=== PATIENT | female | born 1975 | race Caucasian/White ===

== ENCOUNTER 2016-10-28 17:20 | Emergency (ER) | payer MEDICAID ==
[~2016-10-28] VITALS: Ht 157.5 cm; Wt 69.5 kg
[2016-10-28 17:29] VITALS: BP 133/81; PULSE 87; RESP 16; TEMP 98.9; O2SAT 98
[2016-10-28] MEDS ORDERED: AUGM875T PO (18:11)
--- NOTE | 2016-10-28 18:20 | PD ---
HPI Chief Complaint: ENT Complaint Time Seen by Provider: 18:13 Travel History International Travel<30 days: No Contact w/Intl Traveler<30days: No Traveled to known affect area: No History of Present Illness HPI 41-year-old female presents to the emergency room for evaluation of sinus pressure, congestion, right ear pain, and nonproductive cough for the past 10 days. Patient states it started off as a regular cold that seemed to worsen over time. She has continuous nasal congestion. States she blows her nose constantly throughout the day. Most bothered by her right ear which is full with decreased hearing. She has been taking [id number] NyQuil, DayQuil, and Robitussin without any relief in symptoms. Denies fever, chills, nausea, and vomiting. PFSH Past Medical History Medical History: Denies Significant Hx Diminished Hearing: No Herniated Disk: Yes (L5) Tetanus Vaccination: > 5 Years Influenza Vaccination: No ?: Not : 2 Para: 2 Tubal Ligation: Yes Past Surgical History Gynecologic Surgery: Yes (NOVASURE) Other Surgery: Yes (SPINAL ABLATION X2, left wrist) Social History Alcohol Use: Yes (Occ.) Tobacco Use: Yes (1 PPD) Substance Use: No Allergies-Medications (Allergen,Severity, Reaction): Coded Allergies: No Known Allergies (Unverified , 10/28/16) Reported Meds & Prescriptions Reported Meds & Active Scripts Active Augmentin (Amoxicillin-Clavulanate) 875-125 mg Tab 875 Mg PO BID 10 Days not for use in CrCl <30 ml/min. Review of Systems Except as stated in HPI: all other systems reviewed are Neg Physical Exam Narrative GENERAL: Well-nourished, well-developed female in no acute distress. Afebrile. Ambulatory. SKIN: Warm and dry. HEAD: Normocephalic. EYES: No scleral icterus. No injection or drainage. ENT: Mucosa pink and moist. Moderate erythema without edema or exudates. No uvular edema. No uvular, palatal, or tonsillar deviation. Airway patent. Nasal turbinates appear normal without nasal blood, purulent drainage or septal hematoma. EARS: Bilateral pinnae and external canals appear within normal limits. Left tympanic membrane without erythema, dullness or perforation. Right tympanic membrane is erythematous and dull. NECK: Supple, trachea midline. No JVD or lymphadenopathy. CARDIOVASCULAR: Regular rate and rhythm without murmurs, gallops, or rubs. RESPIRATORY: Breath sounds equal bilaterally. No accessory muscle use. Data Data Last Documented VS Vital Signs Date Time Temp Pulse Resp B/P Pulse Ox O2 Delivery O2 Flow Rate FiO2 10/28/16 17:45 16 10/28/16 17:29 98.9 87 133/81 98 MDM Medical Decision Making Medical Screen Exam Complete: Yes Emergency Medical Condition: Yes Medical Record Reviewed: Yes Differential Diagnosis Sinusitis versus bronchitis versus upper respiratory infection Narrative Course 41-year-old female presents to the emergency room for evaluation of sinus and ear pressure for the past 10 days. Resting comfortably. Vital signs stable. Physical exam reveals an extremely erythematous right tympanic membrane with effusion. Lung sounds clear and equal bilaterally. There is mild tenderness to palpation over the maxillary sinuses. Given duration of symptoms, patient will be discharged with prescription for Augmentin and told to follow up with her primary care physician or return for worsening symptoms. [facility] agrees to plan. Diagnosis Primary Impression: Sinusitis Qualified Code: J01.00 - Acute non-recurrent maxillary sinusitis Additional Impression: Right otitis media with effusion Referrals: Primary Care Physician Patient Instructions: General Instructions, Sinusitis (ED) Additional Instructions: Rest and drink plenty of fluids. Take Augmentin with food as directed, until gone. Follow-up with a primary care physician. Return to the emergency room for worsening symptoms. Med/Other Pt SpecificInfo: Prescription(s) given Scripts Amoxicillin-Clavulanate (Augmentin)875-125 mg [id number] Mg PO BID 10 Days Ref 0 not for use in CrCl <30 ml/min. Prov:Nic Vu MD 10/28/16 Disposition: 01 DISCHARGE HOME Condition: Stable Ninoska Bishop Oct 28, 2016 18:20
== END 2016-10-28 18:30 | disposition home or self-care (01) ==
LOC: PHEFT 17:20
DX: J32.9 Chronic sinusitis, unspecified (principal); H65.91 Unspecified nonsuppurative otitis media, right ear
CPT/HCPCS: 99283

== ENCOUNTER 2017-07-25 11:48 | Emergency (ER) | payer MEDICAID ==
[~2017-07-25] VITALS: Ht 160 cm; Wt 67.8 kg
[~2017-07-25 11:48] MED LIST: AUGM875T PO
[2017-07-25 11:54] VITALS: BP 129/67; PULSE 73; RESP 18; TEMP 98.3
[2017-07-25] MEDS ORDERED: NAPR250T PO (12:10)
[2017-07-25] MEDS ORDERED: IBUP-1129 PO (12:10)
[2017-07-25] MEDS ORDERED: ORPHENADRINE INJ 60 MG/2 ML AMP IM ONE (12:30)
[2017-07-25] MEDS ORDERED: KETOROLAC TROMETHAMINE 60 MG/2 ML (IM) VIAL IM ONE (12:30)
[2017-07-25] MEDS ORDERED: CYCL5TAB PO (12:43)
--- NOTE | 2017-07-25 12:44 | PD ---
HPI . Left lateral neck pain Chief Complaint: Back/ Neck Pain or Injury Time Seen by Provider: 12:00 Travel History International Travel<30 days: No Contact w/Intl Traveler<30days: No Traveled to known affect area: No History of Present Illness HPI 42-year-old female presents to emergency room for evaluation of left lateral neck pain that started yesterday while she was working. 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 Patient states it was raining yesterday and she was not doing any labor-intensive activities when the pain started. Patient does not know what occurred to reduce the pain. Patient denies any injuries or trauma to the neck. Patient states she had this once before a long time ago after she pulled a neck muscle. Patient denies any paresthesias, chest pain, shortness breath, fever, chills, malaise, abdominal pain or lightheadedness. Patient has slightly decreased range of motion on left rotation. Full range of motion on right rotation. Full range of motion on extension and limited range of motion on flexion with the neck. Patient has no midline spinal tenderness. Patient states the pain does not radiate anywhere. The pain is aching and chronic in nature and originates at the base of the left lateral skull and extends down over the shoulder and left upper back. Patient denies any major medical history. Patient does not take any daily meds regularly. Patient has no allergies. PFSH Past Medical History Diminished Hearing: No Herniated Disk: Yes (L5) Musculoskeletal: Yes Immunizations Current: No Tetanus Vaccination: > 5 Years Influenza Vaccination: No ?: Not Menopausal: Yes : 2 Para: 2 Tubal Ligation: Yes Past Surgical History Gynecologic Surgery: Yes (NOVASURE) Other Surgery: Yes (SPINAL ABLATION X2, left wrist) Social History Alcohol Use: Yes (Occ.) Tobacco Use: Yes (1 PPD) Substance Use: No Allergies-Medications (Allergen,Severity, Reaction): Coded Allergies: No Known Allergies (Unverified , 07/25/17) Reported Meds & Prescriptions Reported Meds & Active Scripts Active Reported Naproxen 250 Mg Tab 250 Mg PO ONCE Motrin Ib (Ibuprofen) 200 Mg Tablet 800 Mg PO ONCE Review of Systems Except as stated in HPI: all other systems reviewed are Neg Physical Exam Narrative GENERAL: Well-nourished, well-developed 42-year-old female patient in no acute distress. SKIN: Focused skin assessment warm/dry. HEAD: Normocephalic. Atraumatic EYES: No scleral icterus. No injection or drainage. NECK: Supple, trachea midline. No JVD or lymphadenopathy. CARDIOVASCULAR: Regular rate and rhythm without murmurs, gallops, or rubs. RESPIRATORY: Breath sounds equal bilaterally. No accessory muscle use. GASTROINTESTINAL: Abdomen soft, non-tender, nondistended. MUSCULOSKELETAL: Slightly decreased range of motion with left rotation of the neck. Full range of motion on the right rotation of the neck. Full range of motion with extension of the neck. Slightly decreased range of motion with flexion of the neck. No cyanosis, ecchymosis or edema. BACK: No midline spinal tenderness. Nontender without obvious deformity. No CVA tenderness. Data Data Last Documented VS Vital Signs Date Time Temp Pulse Resp B/P (MAP) Pulse Ox O2 Delivery O2 Flow Rate FiO2 07/25/17 11:54 98.3 73 18 129/67 (87) Orders Orders Orphenadrine Inj (Norflex Inj) (07/25/17 12:30) Ketorolac Inj (Toradol Inj) (07/25/17 12:30) MDM Medical Decision Making Medical Screen Exam Complete: Yes Emergency Medical Condition: Yes Differential Diagnosis Differential diagnoses include but not limited to neck strain, neck strain, neck contusion, neck pain Narrative Course 42-year-old female presents to emergency room for evaluation of neck pain. Patient denies any paresthesias, chest pain, injury or trauma occurring to the neck. There is no midline spinal tenderness. Based on patient's symptoms, clinical presentation, vital sign review and physical exam it is not necessary to admit the patient to the hospital or keep the patient in the emergency department for further evaluation. Patient will be given Norflex IM and Toradol IM injections and then discharged home with prescription for Flexeril, instructions to use heating pad and to follow-up with primary care physician. Referrals: Primary Care Physician Patient Instructions: Acute Neck Pain (ED), General Instructions Additional Instructions: Please return to emergency department if your symptoms return or worsen. May use heating pad on the area for 20 minutes to alleviate pain. Follow up with your primary care provider. Take medications as prescribed. Use caution as medication may make you feel sleepy. Med/Other Pt SpecificInfo: Prescription(s) given Scripts Cyclobenzaprine (Flexeril) 5 Mg Tab 5 MG PO BID Y for SPASM, #6 TAB 0 Refills Prov: Marcelina Núñez 07/25/17 Disposition: 01 DISCHARGE HOME Condition: Stable Marcelina Núñez Jul 25, 2017 12:44
== END 2017-07-25 12:53 | disposition home or self-care (01) ==
LOC: PHEFT 11:48
DX: M54.2 Cervicalgia (principal); F17.200 Nicotine dependence, unspecified, uncomplicated; Z79.899 Other long term (current) drug therapy
CPT/HCPCS: 96372; 99284; J1885; J2360

== ENCOUNTER 2017-09-23 19:29 | Emergency (ER) | payer SELFPAY ==
[~2017-09-23] VITALS: Ht 160 cm; Wt 66.0 kg
[~2017-09-23 19:29] MED LIST changes: -AUGM875T PO; +CYCL5TAB PO; +IBUP-1129 PO; +NAPR250T4 PO
[2017-09-23 19:47] VITALS: BP 123/74; PULSE 73; RESP 16; TEMP 97.8; O2SAT 97
[2017-09-23 20:07] VITALS: BP 121/87; PULSE 78; RESP 16; O2SAT 97
[2017-09-23] MEDS ORDERED: MORPHINE SULFATE 4 MG/ML INJ IV PUSH ONE (20:15)
[2017-09-23] MEDS ORDERED: ONDANSETRON HCL 4 MG/2 ML VIAL IVP ONE (20:15)
[2017-09-23] MEDS ORDERED: SODIUM CHLORIDE 0.9% FLUSH 10 ML FLUSH IV FLUSH PRN (20:15)
[2017-09-23 20:20] LABS: AUTOMATED NEUTROPHIL # 6.5 TH/MM3 (1.8-7.7); BASOPHIL # 0.1 TH/MM3 (0-0.2); BASOPHIL % 1.3 % (0.0-2.0); EOSINOPHIL # 0.4 TH/MM3 (0-0.4); EOSINOPHIL % 3.8 % (0.0-4.0); HEMATOCRIT 43.1 % (35.0-46.0); HEMO FLAGS DIFF FINAL; LYMPH % 31.3 % (9.0-44.0); LYMPHOCYTE # 3.4 TH/MM3 (1.0-4.8); MEAN CELL VOLUME 90.8 FL (80.0-100.0); MEAN CORPUSCULAR HEMOGLOBIN 31.1 PG (27.0-34.0); MEAN CORPUSCULAR HGB CONC 34.3 % (32.0-36.0); MONO % 5.5 % (0.0-8.0); NEUT % 58.1 % (16.0-70.0); PLATELET COUNT 326 TH/MM3 (150-450); RED BLOOD COUNT 4.75 MIL/MM3 (4.00-5.30); RED CELL DISTRIBUTION WIDTH 12.8 % (11.6-17.2)
--- NOTE | 2017-09-23 20:22 | PD ---
HPI . Abdominal pain Chief Complaint: Abdominal Pain Time Seen by Provider: 19:54 Travel History International Travel<30 days: No Contact w/Intl Traveler<30days: No Traveled to known affect area: No History of Present Illness HPI Patient presents with chief complaint of abdominal pain. She reports left sided abdominal pain which started earlier today. It is getting progressively worse. It does come and go. She describes it as a stabbing pain which is exacerbated by movement. She reports no pain when she is at rest. She states that the pain has been so severe for the last couple of hours that it causes nausea. Otherwise, she has no associated symptoms. PFSH Past Medical History Diminished Hearing: No Herniated Disk: Yes (L5) Musculoskeletal: Yes Immunizations Current: No ?: Not LMP: 3 years aog Menopausal: Yes : 2 Para: 2 Tubal Ligation: Yes Past Surgical History Gynecologic Surgery: Yes (NOVASURE) Other Surgery: Yes (SPINAL ABLATION X2, left wrist) Social History Alcohol Use: Yes (Occ.) Tobacco Use: Yes (1 PPD) Substance Use: No Allergies-Medications (Allergen,Severity, Reaction): Coded Allergies: No Known Allergies (Unverified Adverse Reaction, Unknown, 09/23/17) Reported Meds & Prescriptions Reported Meds & Active Scripts Active Flexeril (Cyclobenzaprine HCl) 5 Mg Tab 5 Mg PO BID PRN Reported Naproxen 250 Mg Tab 250 Mg PO ONCE Motrin Ib (Ibuprofen) 200 Mg Tablet 800 Mg PO ONCE Review of Systems Except as stated in HPI: all other systems reviewed are Neg General / Constitutional: No: Fever, Chills Gastrointestinal: Positive: Nausea, Abdominal Pain, No: Vomiting, Diarrhea Genitourinary: No: Urgency, Frequency, Dysuria, Discharge, Vaginal Bleeding Physical Exam Narrative GENERAL: Awake and alert and in no acute distress. SKIN: warm/dry. Normal color. HEAD: Normocephalic. Atraumatic. EYES: Pupils equal and round. No scleral icterus. No injection or drainage. ENT: No nasal bleeding or discharge. Mucous membranes pink and moist. NECK: Trachea midline. Full range of motion without pain.. CARDIOVASCULAR: Regular rate and rhythm. Heart sounds normal. RESPIRATORY: No accessory muscle use. Clear to auscultation. Breath sounds equal bilaterally. GASTROINTESTINAL: Abdomen soft. Left sided tenderness. No guarding or rebound. Bowel sounds present. Nondistended. : No CVA tenderness. MUSCULOSKELETAL: No obvious deformities. NEUROLOGICAL: Awake and alert. No obvious cranial nerve deficits. Motor grossly within normal limits. Normal speech. PSYCHIATRIC: Appropriate mood and affect; insight and judgment normal. Data Data Last Documented VS Vital Signs Date Time Temp Pulse Resp B/P (MAP) Pulse Ox O2 Delivery O2 Flow Rate FiO2 09/23/17 21:48 60 16 111/63 (79) 97 Room Air 09/23/17 19:47 97.8 Orders Orders Ed Urine Pregnancytest Poc (09/23/17 19:54) Urinalysis - C+S If Indicated (09/23/17 19:54) Complete Blood Count With Diff (09/23/17 20:09) Comprehensive Metabolic Panel (09/23/17 20:09) Ct Abd/Pel W Iv Contrast(Rout) (09/23/17 20:09) Iv Access Insert/Monitor (09/23/17 20:09) Ecg Monitoring (09/23/17 20:09) Oximetry (09/23/17 20:09) Morphine Inj (Morphine Inj) (09/23/17 20:15) Ondansetron Inj (Zofran Inj) (09/23/17 20:15) Sodium Chloride 0.9% Flush (Ns Flush) (09/23/17 20:15) Iohexol 350 Inj (Omnipaque 350 Inj) (09/23/17 20:51) Labs Laboratory Tests Test 09/23/17 20:00 White Blood Count 11.0 TH/MM3 Red Blood Count 4.75 MIL/MM3 Hemoglobin 14.8 GM/DL Hematocrit 43.1 % Mean Corpuscular Volume 90.8 FL Mean Corpuscular Hemoglobin 31.1 PG Mean Corpuscular Hemoglobin Concent 34.3 % Red Cell Distribution Width 12.8 % Platelet Count 326 TH/MM3 Mean Platelet Volume 8.5 FL Neutrophils (%) (Auto) 58.1 % Lymphocytes (%) (Auto) 31.3 % Monocytes (%) (Auto) 5.5 % Eosinophils (%) (Auto) 3.8 % Basophils (%) (Auto) 1.3 % Neutrophils # (Auto) 6.5 TH/MM3 Lymphocytes # (Auto) 3.4 TH/MM3 Monocytes # (Auto) 0.6 TH/MM3 Eosinophils # (Auto) 0.4 TH/MM3 Basophils # (Auto) 0.1 TH/MM3 CBC Comment DIFF FINAL Differential Comment Urine Color YELLOW Urine Turbidity CLEAR Urine pH 8.0 Urine Specific [place] 1.021 Urine Protein NEG mg/dL Urine Glucose (UA) NEG mg/dL Urine Ketones NEG mg/dL Urine Occult Blood NEG Urine Nitrite NEG Urine Bilirubin NEG Urine Leukocyte Esterase NEG Urine RBC 0-3 /hpf Urine WBC 0-2 /hpf Urine Squamous Epithelial Cells 0-5 /hpf Urine Amorphous Sediment LARGE Microscopic Urinalysis Comment CULT NOT INDICATED Blood Urea Nitrogen 18 MG/DL Creatinine 0.71 MG/DL Random Glucose 95 MG/DL Total Protein 7.4 GM/DL Albumin 3.8 GM/DL Calcium Level 8.5 MG/DL Alkaline Phosphatase 60 U/L Aspartate Amino Transf (AST/SGOT) 17 U/L Alanine Aminotransferase (ALT/SGPT) 21 U/L Total Bilirubin 0.2 MG/DL Sodium Level 138 MEQ/L Potassium Level 4.1 MEQ/L Chloride Level 106 MEQ/L Carbon Dioxide Level 25.4 MEQ/L Anion Gap 7 MEQ/L Estimat Glomerular Filtration Rate 90 ML/MIN [facility] Medical Decision Making Medical Screen Exam Complete: Yes Emergency Medical Condition: Yes Differential Diagnosis Differential diagnosis of abdominal pain includes but is not limited to gastritis, pancreatitis, hepatitis, gastroenteritis, gallbladder disease, constipation, urinary retention, UTI, peptic ulcer disease, diverticulitis or appendicitis Narrative Course This patient presents for the evaluation of left-sided abdominal pain. I have ordered morphine and Zofran. Routine labs are pending. CT is pending. HCG is negative. CBC & BMP Diagram 09/23/17 20:00 Total Protein 7.4, Albumin 3.8, Calcium Level 8.5, Alkaline Phosphatase 60, Aspartate Amino Transf (AST/SGOT) 17, Alanine Aminotransferase (ALT/SGPT) 21, Total Bilirubin 0.2 UA neg. Last Impressions Abdomen/Pelvis CT 09/23/172008 Signed Impressions: Service Date/Time: Saturday, September 23, 2017 20:29 - CONCLUSION: 1. Enlarged fibroid uterus. 2. Tiny 5 mm lower pole left renal cyst. 3. Mild hepatomegaly. 4. Degenerative disc disease at L5-S1. Miguel Petersen MD No acute etiology for her abdominal pain was found. Her symptoms are most likely muscular. She only has pain when she moves. The history, exam, diagnostic testing, and current condition do not suggest any significant pathology to warrant further testing, continued ED treatment, admission, or surgical evaluation at this point. No EMC was found. The patient 's condition is stable and appropriate for discharge. Diagnosis Primary Impression: Abdominal pain Qualified Codes: R10.32 - Left lower quadrant pain Patient Instructions: General Instructions, Muscle Strain (DC) Med/Other Pt SpecificInfo: Prescription(s) given Scripts Tramadol (Ultram) 50 Mg Tab 50 MG PO Q4H Y for PAIN, #12 TAB 0 Refills Prov: Mayra Thurston MD 09/23/17 Disposition: 01 DISCHARGE HOME Condition: Stable Mayra Thurston MD Sep 23, 2017 20:22
[2017-09-23 20:23] LABS: BLOOD, URINE NEG (NEG); GLUCOSE,URINE NEG (NEG); KETONE, URINE NEG (NEG); NITRITE,URINE NEG (NEG)
[2017-09-23 20:27] LABS: URINE COLOR YELLOW (YELLW/STRAW)
[2017-09-23 20:28] LABS: WBC, URINE 0-2 /hpf (0-5)
[2017-09-23 20:29] LABS: COMMENT (UR) CULT NOT INDICATED; CULTURE IF INDICATED CULT NOT INDICATED; RBC, URINE 0-3 /hpf (0-3); SQUAMOUS EPITHELIAL CELL URINE 0-5 /hpf (0-5)
[2017-09-23 20:31] LABS: CHLORIDE 106 MEQ/L (98-107); POTASSIUM 4.1 MEQ/L (3.5-5.1); SODIUM (NA) 138 MEQ/L (136-145)
[2017-09-23 20:35] LABS: ANION GAP 7 MEQ/L (5-15); BICARBONATE 25.4 MEQ/L (21.0-32.0); BLOOD UREA NITROGEN 18 MG/DL (7-18)
[2017-09-23 20:38] LABS: ALT (GPT) 21 U/L (10-53); AST (GOT) 17 U/L (15-37)
[2017-09-23 20:39] LABS: GLOMERULAR FILTRATION RATE 90 ML/MIN (>89)
[2017-09-23 20:40] LABS: TOTAL BILIRUBIN ADULT 0.2 MG/DL (0.2-1.0)
[2017-09-23 20:41] LABS: ALKALINE PHOSPHATASE 60 U/L (45-117)
[2017-09-23] MEDS ORDERED: IOHEXOL 350 MG/ML 10 ML VIAL (for RAD DIAG) IVCONTRAST ONE (20:51)
--- NOTE | 2017-09-23 21:15 | RADRPT ---
EXAM DATE/TIME: 09/23/2017 20:29 [facility] COMPARISON: No previous studies available for comparison. INDICATIONS : Left lower quadrant pain. IV CONTRAST: 100 cc Omnipaque 350 (iohexol) IV ORAL CONTRAST: No oral contrast ingested. RADIATION DOSE: 8.60 CTDIvol (mGy) MEDICAL HISTORY : None SURGICAL HISTORY : Ana M ENCOUNTER: Initial ACUITY: 1 day PAIN SCALE: 3/10 LOCATION: Left lower quadrant TECHNIQUE: Volumetric scanning of the abdomen and pelvis was performed. Using automated exposure control and ad justment of the mA and/or kV according to patient size, radiation dose was kept as low as reasonably achievable to obtain optimal diagnostic quality images. DICOM format image data is available electro nically for review and comparison. FINDINGS: LOWER LUNGS: The visualized lower lungs are clear. LIVER: Liver is mildly enlarged. Homogeneous density without lesion. There is no dilation of the biliary tr ee. No calcified gallstones. SPLEEN: Normal size without lesion. PANCREAS: Within normal limits. KIDNEYS: Normal in size and shape. There is no mass, stone or hydronephrosis. There is a tiny 5 mm lower pole left renal cyst. ADRENAL GLANDS: Within normal limits. VASCULAR: There is no aortic aneurysm. BOWEL/MESENTERY: The stomach, small bowel, and colon demonstrate no acute abnormality. There is no free intraperitone al air or fluid. The appendix is normal. ABDOMINAL WALL: Within normal limits. RETROPERITONEUM: There is no lymphadenopathy. BLADDER: No wall thickening or mass. REPRODUCTIVE: The uterus is enlarged and contains multiple fibroids. INGUINAL: There is no lymphadenopathy or hernia. MUSCULOSKELETAL: Degenerative disc disease is noted at L5-S1. CONCLUSION: 1. Enlarged fibroid uterus. 2. Tiny 5 mm lower pole left renal cyst. 3. Mild hepatomegaly. 4. Degenerative disc disease at L5-S1. Miguel Petersen MD on September 23, 2017 at 21:10 Board Certified Radiologist. This report was verified electronically.
[2017-09-23 21:48] VITALS: BP 111/63; PULSE 60; RESP 16; O2SAT 97
[2017-09-23] MEDS ORDERED: TRAM50 PO (21:52)
== END 2017-09-23 22:13 | disposition home or self-care (01) ==
LOC: PHED 19:29
DX: R10.32 Left lower quadrant pain (principal); D25.9 Leiomyoma of uterus, unspecified; N28.1 Cyst of kidney, acquired; R16.0 Hepatomegaly, not elsewhere classified; M51.37 Other intervertebral disc degeneration, lumbosacral region; F17.200 Nicotine dependence, unspecified, uncomplicated
CPT/HCPCS: 74177; 80053; 81001; 84703; 85025; 96374; 96375; 99285; J2270; J2405; Q9967

== ENCOUNTER 2017-11-29 20:51 | Emergency (ER) | payer MEDICAID ==
[~2017-11-29] VITALS: Ht 160 cm; Wt 65.0 kg
[~2017-11-29 20:51] MED LIST changes: +TRAM50 PO
[2017-11-29] MEDS ORDERED: MORPHINE SULFATE 4 MG/ML INJ IV PUSH ONE (21:00)
[2017-11-29] MEDS ORDERED: ONDANSETRON HCL 4 MG/2 ML VIAL IV PUSH ONE (21:00)
[2017-11-29] MEDS ORDERED: KETOROLAC TROMETHAMINE 30 MG/ML (IVP) VIAL IV PUSH ONE (21:00)
[2017-11-29] MEDS ORDERED: SODIUM CHLORIDE 0.9% FLUSH 10 ML FLUSH IVF PRN (21:00)
[2017-11-29] MEDS ORDERED: SODIUM CHLOR 0.9% 1000 ML INJ 1,000 ML IV ONE (21:00)
[2017-11-29 21:04] VITALS: BP 127/82; PULSE 81; RESP 16; TEMP 98.8; O2SAT 99
--- NOTE | 2017-11-29 21:06 | PD ---
HPI Chief Complaint: rt flank/rlq pain Time Seen by Provider: 21:00 Travel History International Travel<30 days: No Contact w/Intl Traveler<30days: No Traveled to known affect area: No History of Present Illness HPI c/o sharp, nonrad, 06/29, rlq/rt flank area pain, ongoing for last 4 hrs worsening. patient denies fever/n/v/d/cp/backpain/.....patient denies any alleviating/aggravating factors. patient does give history of ovarian cyst which this feels very much like but higher severity. all:denies pmhs:ovarian cyst o/w denies pshx:denies any organ removed, only "laser" surgery to get rid of ovarian cyst, has not seen senior [employer] consultant in 6yrs PFSH Past Medical History Diminished Hearing: No Herniated Disk: Yes (L5) Musculoskeletal: Yes Immunizations Current: No Menopausal: Yes : 2 Para: 2 Tubal Ligation: Yes Past Surgical History Gynecologic Surgery: Yes (NOVASURE) Other Surgery: Yes (SPINAL ABLATION X2, left wrist) Social History Alcohol Use: Yes (Occ.) Tobacco Use: Yes (1 PPD) Substance Use: No Allergies-Medications (Allergen,Severity, Reaction): Coded Allergies: No Known Allergies (Unverified Adverse Reaction, Unknown, 09/23/17) Reported Meds & Prescriptions Reported Meds & Active Scripts Active Ultram (Tramadol HCl) 50 Mg Tab 50 Mg PO Q4H PRN Flexeril (Cyclobenzaprine HCl) 5 Mg Tab 5 Mg PO BID PRN Reported Naproxen 250 Mg Tab 250 Mg PO ONCE Motrin Ib (Ibuprofen) 200 Mg Tablet 800 Mg PO ONCE Review of Systems Except as stated in HPI: all other systems reviewed are Neg General / Constitutional: No: Fever Eyes: No: Visual changes HENT: No: Headaches Cardiovascular: No: Chest Pain or Discomfort Respiratory: No: Shortness of Breath Gastrointestinal: No: Abdominal Pain Genitourinary: Positive: Flank Pain (rt) Musculoskeletal: No: Pain Skin: No Rash Neurologic: No: Weakness Psychiatric: No: Depression Endocrine: No: Polydipsia Hematologic/Lymphatic: No: Easy Bruising Physical Exam Narrative GENERAL: SKIN: Warm and dry. HEAD: Atraumatic. Normocephalic. EYES: Pupils equal and round. No scleral icterus. No injection or drainage. ENT: No nasal bleeding or discharge. Mucous membranes pink and moist. NECK: Trachea midline. No JVD. CARDIOVASCULAR: Regular rate and rhythm. RESPIRATORY: No accessory muscle use. Clear to auscultation. Breath sounds equal bilaterally. GASTROINTESTINAL: Abdomen soft, nondistended. rt adnexal area ttp...NEG ROVSINGS /PSOAS/OBTURATOR SIGN, NEG MCBURNEY'S AND BURNS'S SIGN.....ANGELITO HANKS IN ROOM: EXTERNAL VULVAR EXAM NEG FOR LESIONS OR VAG DISCHARGE. MUSCULOSKELETAL: Extremities without clubbing, cyanosis, or edema. No obvious deformities. NEUROLOGICAL: Awake and alert. No obvious cranial nerve deficits. Motor grossly within normal limits. Five out of 5 muscle strength in the arms and legs. Normal speech. PSYCHIATRIC: Appropriate mood and affect; insight and judgment normal. Data Data Last Documented VS Vital Signs Date Time Temp Pulse Resp B/P (MAP) Pulse Ox O2 Delivery O2 Flow Rate FiO2 11/29/17 21:04 98.8 81 16 127/82 (97) 99 Room Air Orders Orders Complete Blood Count With Diff (11/29/17 21:00) Comprehensive Metabolic Panel (11/29/17 21:00) Urinalysis - C+S If Indicated (11/29/17 21:00) Ed Urine Pregnancytest Poc (11/29/17 21:00) Ct Abd/Pel W/O Iv Contrast (11/29/17 21:00) Ecg Monitoring (11/29/17 21:00) Iv Access Insert/Monitor (11/29/17 21:00) Ketorolac Inj (Toradol Inj) (11/29/17 21:00) Morphine Inj (Morphine Inj) (11/29/17 21:00) Ondansetron Inj (Zofran Inj) (11/29/17 21:00) Sodium Chloride 0.9% Flush (Ns Flush) (11/29/17 21:00) Sodium Chlor 0.9% 1000 Ml Inj (Ns 1000 M (11/29/17 21:00) Labs Laboratory Tests Test 11/29/17 21:35 11/29/17 21:50 White Blood Count 13.7 TH/MM3 Red Blood Count 4.81 MIL/MM3 Hemoglobin 14.8 GM/DL Hematocrit 44.1 % Mean Corpuscular Volume 91.5 FL Mean Corpuscular Hemoglobin 30.8 PG Mean Corpuscular Hemoglobin Concent 33.6 % Red Cell Distribution Width 13.2 % Platelet Count 371 TH/MM3 Mean Platelet Volume 8.6 FL Neutrophils (%) (Auto) 61.2 % Lymphocytes (%) (Auto) 31.2 % Monocytes (%) (Auto) 5.1 % Eosinophils (%) (Auto) 1.9 % Basophils (%) (Auto) 0.6 % Neutrophils # (Auto) 8.4 TH/MM3 Lymphocytes # (Auto) 4.3 TH/MM3 Monocytes # (Auto) 0.7 TH/MM3 Eosinophils # (Auto) 0.3 TH/MM3 Basophils # (Auto) 0.1 TH/MM3 CBC Comment DIFF FINAL Differential Comment Blood Urea Nitrogen 12 MG/DL Creatinine 0.85 MG/DL Random Glucose 80 MG/DL Total Protein 7.6 GM/DL Albumin 3.9 GM/DL Calcium Level 9.5 MG/DL Alkaline Phosphatase 60 U/L Aspartate Amino Transf (AST/SGOT) 24 U/L Alanine Aminotransferase (ALT/SGPT) 21 U/L Total Bilirubin 0.3 MG/DL Sodium Level 139 MEQ/L Potassium Level 4.5 MEQ/L Chloride Level 107 MEQ/L Carbon Dioxide Level 21.6 MEQ/L Anion Gap 10 MEQ/L Estimat Glomerular Filtration Rate 73 ML/MIN Urine Color LIGHT-YELLOW Urine Turbidity CLEAR Urine pH 8.0 Urine Specific [place] 1.007 Urine Protein NEG mg/dL Urine Glucose (UA) NEG mg/dL Urine Ketones NEG mg/dL Urine Occult Blood NEG Urine Nitrite NEG Urine Bilirubin NEG Urine Urobilinogen LESS THAN 2.0 MG/DL Urine Leukocyte Esterase NEG Urine RBC 1 /hpf Urine WBC LESS THAN 1 /hpf Urine Squamous Epithelial Cells 2 /hpf Urine Bacteria RARE /hpf Urine Mucus FEW /lpf Microscopic Urinalysis Comment CULT NOT INDICATED MDM Medical Decision Making Medical Screen Exam Complete: Yes Emergency Medical Condition: Yes Medical Record Reviewed: Yes Differential Diagnosis preg related ectopic v kidney stone v appy v ovarian cyst v colitis v diverticulitis Narrative Course NEG PREG, CBC WITHOUT LEUKOCYTOSIS/ANEMIA, CMP WITH NORMAL Diagnosis Primary Impression: Ovarian cyst Qualified Codes: N83.201 - Unspecified ovarian cyst, right side Patient Instructions: General Instructions, Ovarian Cyst (DC) Scripts Tramadol (Ultram) 50 Mg Tab 50 MG PO Q8H Y for PAIN, #15 TAB 0 Refills Prov: [place],Missael Tank MD 11/29/17 Ketorolac (Ketorolac) 10 Mg Tab 10 MG PO TID for Pain Management, #15 TAB 0 Refills Prov: Missael Jefferson MD 11/29/17 Disposition: 01 DISCHARGE HOME Condition: Stable Missael Jefferson MD Nov 29, 2017 21:06
--- NOTE | 2017-11-29 21:52 | RADRPT ---
EXAM DATE/TIME: 11/29/2017 21:30 [place] COMPARISON: CT ABDOMEN & PELVIS W CONTRAST, September 23, 2017, 20:29. INDICATIONS : Intermittent right flank pain; possible renal calculi. ORAL CONTRAST: No oral contrast ingested. RADIATION DOSE: 6.98 CTDIvol (mGy) MEDICAL HISTORY : None SURGICAL HISTORY : Tubal ligation. ENCOUNTER: Initial ACUITY: 1 day PAIN SCALE: 10/10 LOCATION: Right flank TECHNIQUE: Volumetric scanning of the abdomen and pelvis was performed. Using automated exposure control and ad justment of the mA and/or kV according to patient size, radiation dose was kept as low as reasonably achievable to obtain optimal diagnostic quality images. DICOM format image data is available electro nically for review and comparison. FINDINGS: LOWER LUNGS: The visualized lower lungs are clear. LIVER: Homogeneous density without lesion for noncontrast technique. There is no dilation of the biliary tr ee. No calcified gallstones. SPLEEN: Normal size without lesion. PANCREAS: Within normal limits. KIDNEYS: No calcified renal stones. No evidence of hydronephrosis. Both ureters are normal dimension. ADRENAL GLANDS: Within normal limits. VASCULAR: There is no aortic aneurysm. BOWEL/MESENTERY: No dilated loops of small or large bowel. ABDOMINAL WALL: Within normal limits. RETROPERITONEUM: There is no lymphadenopathy. BLADDER: No wall thickening or mass. REPRODUCTIVE: Contour to the uterus. Symmetric appearance the adnexa. Solitary punctate calcification the junctio n of right ovary and uterus. No evidence of free fluid. INGUINAL: There is no lymphadenopathy or hernia. MUSCULOSKELETAL: Within normal limits for patient age. CONCLUSION: Negative renal colic CT. Júniro David MD on November 29, 2017 at 21:46 Board Certified Radiologist. This report was verified electronically.
[2017-11-29 22:28] LABS: AUTOMATED NEUTROPHIL # 8.4 TH/MM3 (1.8-7.7); BASOPHIL # 0.1 TH/MM3 (0-0.2); BASOPHIL % 0.6 % (0.0-2.0); EOSINOPHIL # 0.3 TH/MM3 (0-0.4); EOSINOPHIL % 1.9 % (0.0-4.0); HEMATOCRIT 44.1 % (35.0-46.0); HEMOGLOBIN 14.8 GM/DL (11.6-15.3); LYMPH % 31.2 % (9.0-44.0); LYMPHOCYTE # 4.3 TH/MM3 (1.0-4.8); MEAN CELL VOLUME 91.5 FL (80.0-100.0); MEAN CORPUSCULAR HEMOGLOBIN 30.8 PG (27.0-34.0); MEAN CORPUSCULAR HGB CONC 33.6 % (32.0-36.0); MEAN PLATELET VOLUME 8.6 FL (7.0-11.0); MONO % 5.1 % (0.0-8.0); MONOCYTE # 0.7 TH/MM3 (0-0.9); NEUT % 61.2 % (16.0-70.0); PLATELET COUNT 371 TH/MM3 (150-450); RED BLOOD COUNT 4.81 MIL/MM3 (4.00-5.30); RED CELL DISTRIBUTION WIDTH 13.2 % (11.6-17.2); WHITE BLOOD COUNT 13.7 TH/MM3 (4.0-11.0)
[2017-11-29 22:38] LABS: BACTERIA, URINE RARE /hpf; BILIRUBIN, URINE NEG (NEG); BLOOD, URINE NEG (NEG); GLUCOSE,URINE NEG (NEG); KETONE, URINE NEG (NEG); MUCUS URINE FEW /lpf (OCC); NITRITE,URINE NEG (NEG); SQUAMOUS EPITHELIAL CELL URINE 2 /hpf (0-5); URINE COLOR LIGHT-YELLOW (YELLW/STRAW); URINE LEUKOCYTE ESTERASE NEG (NEG)
[2017-11-29 23:02] LABS: ALKALINE PHOSPHATASE 60 U/L (45-117); ALT (GPT) 21 U/L (10-53); TOTAL BILIRUBIN ADULT 0.3 MG/DL (0.2-1.0); TOTAL PROTEIN 7.6 GM/DL (6.4-8.2)
[2017-11-29 23:10] LABS: ALBUMIN 3.9 GM/DL (3.4-5.0); AST (GOT) 24 U/L (15-37); BICARBONATE 21.6 MEQ/L (21.0-32.0); BLOOD UREA NITROGEN 12 MG/DL (7-18); CALCIUM 9.5 MG/DL (8.5-10.1); CHLORIDE 107 MEQ/L (98-107); CREATININE 0.85 MG/DL (0.50-1.00); GLOMERULAR FILTRATION RATE 73 ML/MIN (>89); GLUCOSE,RANDOM 80 MG/DL (74-106); SODIUM (NA) 139 MEQ/L (136-145)
[2017-11-29] MEDS ORDERED: TRAM50 PO (23:22)
[2017-11-29] MEDS ORDERED: KETO10 PO (23:22)
[2017-11-29] MEDS ORDERED: ZOFR4TAB3 SL (23:56)
== END 2017-11-30 00:06 | disposition home or self-care (01) ==
LOC: NEPD 20:51
DX: N83.201 Unspecified ovarian cyst, right side (principal); F17.210 Nicotine dependence, cigarettes, uncomplicated
CPT/HCPCS: 74176; 80053; 81001; 84703; 85025; 96374; 96375; 99284; J1885; J2270; J2405; J7030